=== PATIENT | female | born 1975 | race Caucasian/White ===

== ENCOUNTER 2023-10-20 00:23 | Emergency (ER) | payer BC, SELFPAY ==
[2023-10-20 00:24] VITALS: BP 129/86
[2023-10-20] MEDS: TETRACAINE 0.5% OPHTHALMIC SOLUTION 1 DROP OPHTH (00:44)
--- NOTE | 2023-10-20 03:20 | ED.GENMED ---
History of Present Illness
General
Chief Complaint: Eye Problems
Source: patient
Exam Limitations: none
Time Seen by Provider: 10/20/23 03:00
Nursing documentation reviewed up to this point in time: agreed with
Travel History
Have you had any contact with someone who has COVID-19?: No
Do you have any symptoms of coronavirus? Fever > 100 degrees, chills, cough, shortness of breath, sore throat, loss of taste or smell, muscle aches, or headache?: No
History of Present Illness
History of Present Illness:
Pleasant 48-year-old female who presents with bilateral eye pain. She purchased a UV sterilization light and activated it tonight. She was in the room and states that she did not look directly at the light. She developed pain shortly after
leaving the room. She states that her eyes were tearing and that her vision became blurry. Reports that she did use [id number] eyedrops without relief. She wears glasses but needs tamale for far vision. Denies any known eye trauma.
Past History
Past History
ED Past Medical History: Other (Endometriosis)
ED Past Surgical History: Gynecological
Social History
Tobacco: Smoker
Review of Systems
Review of Systems
Allergies reviewed?: Yes
Other source history: other
All Other Systems: ROS reviewed and negative except as documented in HPI and ROS
Constitutional: Reports no symptoms
EENT: Reports tearing and other (Bilateral eye pain)
Respiratory: Reports no symptoms
Cardiac: Reports no symptoms
ABD/GI: Reports no symptoms
: Reports no symptoms
Musculoskeletal: Reports no symptoms
Skin: Reports no symptoms
Neurological: Reports no symptoms
Endocrine: Reports no symptoms
Hematologic/Lymphatic: Reports no symptoms
Psychiatric: Reports no symptoms
Phy Exam
General Physical Exam
General Presentation: well appearing and mild distress
General age: appears stated age
General Skin: warm and dry
General Habitus: normal
General Mental: alert
Eye Exam
Eye Exam: PERRL
Eye Exam General: PERRL: bilateral
Cornea Exam: abrasion: Bilateral (Left eye abrasion is larger than right)
Pulmonary Exam
Pulmonary Exam: no respiratory distress
Musculoskeletal Exam
Musculoskeletal Exam: full ROM
Skin Exam
Skin Exam: normal color and warm/dry
Psychiatric Exam
Psychiatric Exam: normal mood/affect
Course
Orders/Labs/Results
Orders:
Orders
10/20/23 00:36
Purified Water Eye Wash [Dacriose Eye Wash Solution] 120 ml .ROUTE .STK-MED ONE
10/20/23 00:44
Tetracaine HCl [Tetracaine 0.5% Ophthalmic Solution] See Dose Instructions OPHTH ONCE ONE
10/20/23 03:15
Fluorescein Sodium [Ful-Estelita] 1 mg .ROUTE .STK-MED ONE
10/20/23 03:19
Tetanus/Diphth/Acelpertussis [Adacel] 0.5 ml IM .ONCE ONE
10/20/23 03:20
Gentamicin [Genoptic 0.3% Eye Drops] See Dose Instructions OPHTH NOW STA
Vital Signs
Initial and Last Documented VS:
Initial Vital Signs
Temp Pulse Resp BP Pulse Ox
98.0 F 84 15 129/86 96
10/20/23 00:24 10/20/23 00:24 10/20/23 00:24 10/20/23 00:24 10/20/23 00:24
Last Documented Vital Signs
Temp Pulse Resp BP Pulse Ox
98.0 F 84 15 129/86 96
10/20/23 00:24 10/20/23 00:24 10/20/23 00:24 10/20/23 00:24 10/20/23 00:24
*Critical Care Note
Total Time (30-74mins, 75-104mins- exclusive of procedures): Not Applicable
ED Attending Note
-
Portions of this chart may have been created with voice recognition software.� Occasional wrong word or��sound alike� substitutions may have occurred due to the inherent limitations of voice recognition software.
Discharge Plan
Departure
Patient Disposition: Home (Routine Discharge)
Date of Disposition: 10/20/23
Time of Disposition: 03:26
Patient with high blood pressure during this ER visit?: Yes
Condition: Good
Discharge Problem:
Corneal abrasion of both eyes
Instructions: Corneal Abrasion (DC), BLOOD PRESSURE
Prescriptions:
No Action
ondansetron [Zofran ODT] 8 MG tablet,disintegrating
8 mg PO TIDPRN PRN (Reason: vomiting) Qty: 15 0RF
oxycodone [OxyIR] 5 MG capsule
5 mg PO Q6HPRN PRN (Reason: pain) Qty: 10 0RF
pantoprazole 40 MG tablet,delayed release (DR/EC)
40 mg PO BID Qty: 20 0RF
Referrals:
Hamilton Vivar MD [Active] -
Stand Alone Forms: Return to Work
Activity Restrictions/Additional Instructions:
Please apply 1 drop to each eye every 4 hours for the next 3 to 5 days. It is important to follow-up with your eye doctor for repeat exam, as discussed.
It was a pleasure meeting you and taking part in your care. We hope for your continued healing and wellness.
Please read discharge instructions in their entirety. However, they are for general education and may not describe your exact diagnosis at discharge. Information on your ER visit and medical conditions were discussed with you along with appropriate
follow up information...
If indicated, please take your medications as instructed and indicated on discharge paperwork.
Please schedule a follow up appointment as directed. Call to schedule an appointment
Please return to the emergency department with ANY change in, persisting, or worsening of symptoms. If any of your symptoms do not improve, or persist, or become more severe within 6-12 hours, please return to the emergency department for further
care.
Please return to the emergency department if you develop a headache, neck pain/stiffness, fever greater than 100.4F, chest pain, shortness of breath, persistent nausea, vomiting, slurred speech, difficulty walking, numbness/tingling, weakness, signs
of infection or any other symptoms that are worrisome to you.
If you have any questions or concerns please do not hesitate to call the Hospital at or E-mail me directly at [email or web address]
Discharge Date and Time
Print Language: [id number]
[2023-10-20] MEDS: ADACEL 0.5 ML IM (03:49)
[2023-10-20] MEDS: GENOPTIC 0.3% EYE DROPS 1 DROP OPHTH (03:51)
== END 2023-10-20 04:00 | disposition home or self-care (01) ==
LOC: EMR 00:23
PROVIDERS: EMERGENCY PHYSICIAN Student in an Organized Health Care Education/Training Program; FAMILY PHYSICIAN Family Medicine
DX: S05.01XA Injury of conjunctiva and corneal abrasion without foreign body, right eye, initial encounter (principal); S05.02XA Injury of conjunctiva and corneal abrasion without foreign body, left eye, initial encounter; W89.8XXA Exposure to other man-made visible and ultraviolet light, initial encounter; Z23 Encounter for immunization; R03.0 Elevated blood-pressure reading, without diagnosis of hypertension; F17.200 Nicotine dependence, unspecified, uncomplicated
CPT/HCPCS: 99283; 90471; 90715